=== PATIENT | female | born 2000 | race Caucasian/White ===

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

== ENCOUNTER → 2022-04-27 | Outpatient (CLI) | payer MEDICAID, SELFPAY ==
[2022-04-30 04:07] LABS: Chlamydia By Nucleic Acid AMP Negative (Negative)
[2022-04-30 20:02] LABS: Gonococcus By Nucleic Acid AMP Negative (Negative)
== END | disposition home or self-care (01) ==
PROVIDERS: PCP Nurse Practitioner Primary Care; Referring Provider Nurse Practitioner Women's Health; Visit Provider Nurse Practitioner Women's Health
DX: N89.8 Other specified noninflammatory disorders of vagina (principal)
CPT/HCPCS: 87070; 87205; 87491; 87591

== ENCOUNTER → 2023-04-13 | Outpatient (CLI) | payer MEDICAID, SELFPAY ==
--- OUTSIDE RECORDS SUMMARY | 2023-04-13 16:43 | XMS RPT_ITS | CCD ---
Author Name Unknown Address [facility] [place] [facility] [address] [place] [address] Organization [facility] Care Team Providers Care Vice President Of Instruction Name Role Phone Shan Nash MD Primary Care Provider SHAN NASH Primary Care Unavailab le SHAN NASH Primary Care Unavailab le Medications Current Medications Medication Drug Class(es) Dates Sig (Normalized) Sig (Original) polymyxin b 81140 unt/ml / trimethoprim 1 mg/ml ophthalmic solution (1 source) Dihydrofolate Reductase Inhibitor Antibacterial, Polymyxin-class Antibacterial Start: 02-24-2023 End: 03-03-2023 take 1 drop(s) into the eye(s) four times daily trimethoprim-polymy gerry (POLYTRIM) 10,000 unit- 1 mg/mL ophthalmic solution Indications: Bacterial conjunctivitis Use 1 Drop in the right eye four times daily for 7 days. 10 mL 0 02/24/2023 03/03/2023 Active Completed/Discontinued Medications Medication Drug Class(es) Dates Sig (Normalized) Sig (Original) acetaminophen 325 mg oral capsule (3 sources) acetaminophen (T YLENOL) 325 mg cap Take by mouth. 0 Active Problems Active Problems Problem Classification Problem Date Documented Date Episodic/Chronic Anxiety disorders (3 sources) Needle phobia; Translations: [Other specified phobia] Onset: 01-30-2016 01-30-2016 Chronic Attention-deficit, conduct, and disruptive behavior disorders (3 sources) Attention deficit hyperactivity disorder; Translations: [Attention-deficit hyperactivity disorder, unspecified type] Onset: 12-25-2009 12-25-2009 Chronic Immunizations and screening for infectious disease (1 source) Contact with or exposure to other viral diseases; Translations: [Close exposure to COVID-19 virus] Episodic Inflammation; infection of eye (except that caused by tuberculosis or sexually transmitteddisease) (1 source) Bacterial conjunctivitis; Translations: [Unspecified conjunctivitis] 02-24-2023 Episodic Influenza (1 source) Influenza-like illness; Translations: [Influenza due to unidentified influenza virus with other respiratory manifestations] Episodic Other upper respiratory infections (1 source) Sore throat symptom; Translations: [Acute pharyngitis, unspecified] 02-24-2023 Episodic Past or Other Problems Problem Classification Problem Date Documented Da te Episodic/Chronic Other gastrointestinal disorders (3 sources) Constipation; Translations: [Constipation, unspecified] Onset: 11-04-2015 11-04-2015 Episodic Other nutritional; endocrine; and metabolic disorders (3 sources) Overweight; Translations: [Overweight] Onset: 11-04-2015 11-04-2015 Episodic Other skin disorders (3 sources) Acne; Translations: [Acne, unspecified] Onset: 02-05-2016 02-05-2016 Episodic Results Test Name Value Interpretation Reference Range Facil ity Vital Signs Date Time Vital Sign Value Performing Clinician Faci ameenay 02-24-2023 12:11-0500 Body temperature 97.39 [degF] Rocael Swanson APRN.[facility] Work Phone: [facility] 02-24-2023 12:11-0500 Body weight 95.62 kg Rocael Swanson APRN.[facility] HEALTH CLINICAL [facility]IAISON Work Phone: [facility] 02-24-2023 12:11-0500 Diastolic blood pressure 74 mm[Hg] Rocael Swanson APRN.[facility]ALTH CLINICAL [facility]IAISON Work Phone: [facility] 02-24-2023 12:11-0500 Heart rate 116 /min Rocael Swanson APRN.[facility] CLINICAL [facility]IAISON Work Phone: [facility] 02-24-2023 12:11-0500 Respiratory rate 18 /min Rocael Swanson APRN.[facility] CLIN[facility]IAISON Work Phone: [facility] 02-24-2023 12:11-0500 SaO2% (BldA) [Mass fraction] 99 % Rocael Swanson APRN.[facility] CLINICAL [facility]IAISON Work Phone: [facility] 02-24-2023 12:11-0500 Systolic blood pressure 122 mm[Hg] Rocael Swanson APRN.[facility] CL[facility]ICAL [facility]IAISON Work Phone: [facility] 03-09-2022 17:11-0500 Body temperature 99.3 [degF] Meir Cisse MD Work Phone: [facility] 03-09-2022 17:11-0500 Body weight 93.89 kg Meir Cisse MD Work Phone: [facility] 03-09-2022 17:11-0500 Diastolic blood pressure 62 mm[Hg] Meir Cisse MD Work Phone: [facility] 03-09-2022 17:11-0500 Heart rate 130 /min Meir Cisse MD Work Phone: [facility] 03-09-2022 17:11-0500 Respiratory rate 18 /min Meir Cisse MD Work Phone: [facility] 03-09-2022 17:11-0500 SaO2% (BldA) [Mass fraction] 98 % Meir Cisse MD Work Phone: [facility] 03-09-2022 17:11-0500 Systolic blood pressure 100 mm[Hg] Meir Cisse MD Work Phone: [facility] 08-21-2021 15:55-0400 Body temperature 98.01 [degF] Brenna Segura APRN.[facility]IAISON Work Phone: [facility] 08-21-2021 15:55-0400 Body weight 88.36 kg Brenna Segura APRN.[facility] Work Phone: [facility] 08-21-2021 15:55-0400 Diastolic blood pressure 72 mm[Hg] Brenna Segura APRN.[facility] Work Phone: [facility] 08-21-2021 15:55-0400 Heart rate 110 /min Brenna Segura APRN.[facility] Work Phone: [facility] 08-21-2021 15:55-0400 Respiratory rate 20 /min Brenna Segura APRN.[facility] Work Phone: [facility] 08-21-2021 15:55-0400 SaO2% (BldA) [Mass fraction] 98 % Brenna Segura APRN.CNP Work Phone: [facility] 08-21-2021 15:55-0400 Systolic blood pressure 114 mm[Hg] Brenna Segura APRN.CNP Work Phone: [facility] Encounters Encounter Date Encounter Type Care Provider Facility Start: 02-24-2023 End: 02-24-2023 ambulatory SHAN NASH Facility:[facility] Start: 02-24-2023 End: 02-24-2023 Patient encounter procedure Rocael Swanson WENDI.[facility]ICAL [facility]IAISON Work Phone: [facility] Procedures Date Procedure Procedure Detail Performing Clinician Start: 02-24-2023 STREP A MOLECULAR (POC) [facility] Provider Plan of Treatment Date Care Activity Detail Author Start: 11-20-2022 Influenza vaccination Influenza Vaccine (#1) [facility] Start: 03-22-2022 Depression Assessment Depression Assessment [facility] Start: 03-09-2022 End: 03-23-2022 Influenza virus A and B RNA and SARS-CoV-2 (COVID-19) N gene panel - Respiratory specimen by CIERA with probe detection COVID WITH FLUA+B, ROUTINE Microbiology Routine Influenza-like illness Expected: 03/09/2022, Expires: 03/23/2022 [facility] Work Phone: Immunizations Immunization Date Immunization Notes Care Provider Meka coronado 04-09-2016 meningococcal polysaccharide (groups A, C, Y and W-135) diphtheria toxoid conjugate vaccine (MCV4P) Brenna Segura APRN.[facility] Work Phone: [facility] 11-05-2010 hepatitis A vaccine, unspecified formulation Brenna Segura APRN.[facility]IA[facility] Work Phone: [facility] 11-05-2010 varicella virus vaccine Martha Segura APRN.[facility] Work Phone: [facility] 05-12-2007 diphtheria, tetanus toxoids and acellular pertussis vaccine Brenna Segura APRN.CNP Work Phone: [facility] Work Phone: 05-12-2007 hepatitis A vaccine, unspecified formulation Brenna Segura APRN.[facility] Work Phone: [facility] Work Phone: 05-12-2007 measles, mumps and rubella virus vaccine Brenna Segura APRN.[facility] Work Phone: [facility] Work Phone: 05-12-2007 poliovirus vaccine, inactivated Brenna Segura APRN.[facility] Work Phone: [facility] Work Phone: 02-14-2007 influenza virus vacc ine, unspecified formulation Brenna Segura APRN.[facility] Work Phone: [facility] Work Phone: 12-25-2004 diphtheria, tetanus toxoids and acellular pertussis vaccine Brenna Segura APRN.[facility] Work Phone: [facility] Work Phone: 12-25-2004 haemophilus influenz ae type b vaccine, HbOC conjugate Brenna Segura APRN.[facility] Work Phone: [facility] Work Phone: 12-25-2004 pneumococcal conjuga te vaccine, 7 valent Brenna Segura APRN.[facility] Work Phone: [facility] Work Phone: 11-21-2003 hepatitis B vaccine, pediatric or pediatric/adolescent dosage Brenna Segura APRN.[facility] Work Phone: [facility] Work Phone: 11-21-2003 measles, mumps and rubella virus vaccine Brenna Segura APRN.[facility] Work Phone: [facility] Work Phone: 11-21-2003 poliovirus vaccine, inactivated Brenna Segura APRN.[facility] Work Phone: [facility] Work Phone: 11-21-2003 varicella virus vaccine Martha Segura APRN.[facility] Work Phone: [facility] Work Phone: 04-30-2003 diphtheria, tetanus toxoids and acellular pertussis vaccine Brenna Segura APRN.[facility] Work Phone: [facility] Work Phone: 04-30-2003 haemophilus influenz ae type b vaccine, HbOC conjugate Brenna Segura APRN.[facility] Work Phone: [facility] Work Phone: 04-30-2003 hepatitis B vaccine, pediatric or pediatric/adolescent dosage Brenna Segura APRN.[facility] Work Phone: [facility] Work Phone: 04-30-2003 pneumococcal conjuga te vaccine, 7 valent Brenan Segura APRN.[facility] Work Phone: [facility] Work Phone: 03-02-2003 diphtheria, tetanus toxoids and acellular pertussis vaccine Brenna Segura APRN.[facility] Work Phone: [facility] Work Phone: 03-02-2003 haemophilus influenz ae type b vaccine, HbOC conjugate Brenna Segura APRN.[facility] Work Phone: [facility] Work Phone: 03-02-2003 pneumococcal conjuga te vaccine, 7 valent Brenna Segura APRN.[facility] Work Phone: [facility] Work Phone: 03-02-2003 poliovirus vaccine, inactivated Brenna Segura APRN.[facility] Work Phone: [facility] Work Phone: 2002 diphtheria, tetanus toxoids and acellular pertussis vaccine Brenna Segura APRN.[facility] Work Phone: [facility] Work Phone: 2002 haemophilus influenz ae type b vaccine, HbOC conjugate Brenna Segura APRN.[facility] Work Phone: [facility] Work Phone: 2002 pneumococcal conjuga te vaccine, 7 valent Brenna Segura APRN.[facility] Work Phone: [facility] Work Phone: 2002 poliovirus vaccine, inactivated Brenna Segura APRN.[facility] Work Phone: [facility] Work Phone: 2002 hepatitis B vaccine, pediatric or pediatric/adolescent dosage Brenna Segura APRN.[facility] Work Phone: [facility] Work Phone: Payers Date Payer Category Payer Medicaid [id number] 2018 Medicaid [employer] [facility] [id number] 2018-Present [phone] [address] [place] [address] Medicaid [id number] 2018 Medicaid [id number] 2018 Medicaid [id number] Social History Date Type Detail Facility Start: [facility]09[facility] Start: 08-21-2021 End: 02-24-2023 Alcohol intake Current non-drinker of alcohol (finding) [facility] Start: 12-10-2012 End: 03-09-2022 Tobacco Comment Outside of the home only, none with grandfather [facility] Start: 2002 Sex Assigned At Not on file [facility] History of tobacco use Passive smoker [facility] Start: 03-09-2022 Tobacco use and exposure Smokeless t obacco non-user [facility] Start: 02-25-2020 End: 02-24-2023 History of Social function [facility] Start: 02-25-2020 End: 02-24-2023 Tobacco use panel [facility] National Score (1-10 0), lower number is lower risk Not on file [facility] Progress note 02-24-2023 Note Date & Type Note Facility 02-24-2023 Note HNO ID: [id number] Author: Rocael Swanson APRN.[facility] Service: ? Author Type: Nurse Practitioner Type: Progress Notes Filed: 02/24/2023 1:06 PM Note Text: Subjective HPI HPI Grazyna Langston is a 22 year old female who presents today for CC of right eye redness, drainage, congestion, cough, right ear pain. This started 2 days ago. Has tried otc medication for relief. Symptoms are worsened by nothing. Risk factors sick exposures at work. Denies possibility of being . Nonsmoker. .Patient presents with: Conjunctivitis: Congestion, Right ear pain, and cough x2days PAST MEDICAL HISTORY Diagnosis Date Acne 02/05/2016 ADHD (attention deficit hyperactivity disorder) 11-20-2009 Constipation 11/04/2015 Menstrual periods irregular 2014 NEGATIVE MEDICAL HISTORY 05/12/2007 Normal color vision Overweight 11/04/2015 PAST SURGICAL HISTORY Procedure Laterality Date NONE ALLERGIES Patient has no known allergies. MEDICATIONS levonorgestrel-ethinyl estradiol 0.15-0.03 mg per tab Take by mouth. acetaminophen (TYLENOL) 325 mg cap Take by mouth. FAMILY HISTORY Problem Relation Age of Onset other (Anxiety) Mother None Father Diabetes Maternal Grandfather other (Anxiety) Maternal Grandfather Diabetes Paternal Grandfather Social History Tobacco Use Smoking status: Never Passive exposure: Yes Smokeless tobacco: Never Tobacco comments: Outside of the home only, none with grandfather Substance Use Topics Alcohol use: No Drug use: No Review of Systems Constitutional: Positive for malaise/fatigue. Negative for chills and fever. HENT: Positive for congestion. Negative for ear discharge, ear pain, nosebleeds and sore throat. Eyes: Positive for discharge and redness. Negative for blurred vision, double vision, photophobia and pain. Respiratory: Positive for cough. Negative for shortness of breath and wheezing. Musculoskeletal: Negative for neck pain. Neurological: Negative for headaches. Objective Blood pressure 122/74, pulse 116, temperature 36.3 ?C (97.4 ?F), resp. rate 18, weight 95.6 kg (210 lb 12.8 oz), last menstrual period 12/29/2020, SpO2 99%. Physical Exam Constitutional: General: She is not in acute distress. Appearance: She is not toxic-appearing or diaphoretic. HENT: Head: Normocephalic and atraumatic. Right Ear: Hearing, tympanic membrane, ear canal and external ear normal. Left Ear: Hearing, tympanic membrane, ear canal and external ear normal. Nose: Nose normal. No mucosal edema. Mouth/Throat: Pharynx: Uvula midline. No pharyngeal swelling, oropharyngeal exudate, posterior oropharyngeal erythema or uvula swelling. Eyes: General: Lids are normal. No scleral icterus. Right eye: Discharge present. Left eye: No discharge. Conjunctiva/sclera: Right eye: Right conjunctiva is injected. Left eye: Left conjunctiva is injected. Pupils: Pupils are equal, round, and reactive to light. Neck: Trachea: Trachea normal. Cardiovascular: Rate and Rhythm: Normal rate and regular rhythm. Heart sounds: Normal heart sounds. Pulmonary: Effort: Pulmonary effort is normal. Breath sounds: Normal breath sounds. Musculoskeletal: Cervical back: Normal range of motion and neck supple. Lymphadenopathy: Cervical: Cervical adenopathy present. Right cervical: Superficial cervical adenopathy present. Left cervical: Superficial cervical adenopathy present. Comments: No cervical lymphadenopathy bilaterally Skin: Findings: No rash. Neurological: Mental Status: She is alert and oriented to person, place, and time. ASSESSMENT/PLAN: 1. Sore throat - ICD9: 462, ICD10: J02.9 (primary diagnosis) - suspect viral - Group A strep molecular testing negative - Discussed supportive care treatment with fluids, rest and analgesia. - The patient should follow up in 3-5 days if symptoms persist or worsen - ALERE STREP A TEST (AG) 2. Bacterial conjunctivitis - ICD9: 372.39, 041.9, ICD10: H10.9 Bacterial - see medication orders - course and contagiousness issues discussed, including hand washing. - Instructed to call if high fever, development of periorbital redness or swelling, eye pain, visual changes, concerns or if symptoms persist. - POLYMYXIN B SULFATE 10,000 UNIT-TRIMETHOPRIM 1 MG/ML EYE DROPS Rocael Swanson APRN.[facility] History of Present illness Narrative 02-24-2023 Rocael Swanson APRN.LINDY - 02/24/2023 12:17 PM EST Note Date & Type Note Facility 02-24-2023 History of Presen t illness Narrative Subjective HPI HPI Grazyna Langston is a 22 year old female who presents today for CC of right eye redness, drainage, congestion, cough, right ear pain. This started 2 days ago. Has tried otc medication for relief. Symptoms are worsened by nothing. Risk factors sick exposures at work. Denies possibility of being . Nonsmoker. .Patient presents with: Conjunctivitis: Congestion, Right ear pain, and cough x2days PAST MEDICAL HISTORY Diagnosis Date Acne 02/05/2016 ADHD (attention deficit hyperactivity disorder) 11-20-2009 Constipation 11/04/2015 Menstrual periods irregular 2014 NEGATIVE MEDICAL HISTORY 05/12/2007 Normal color vision Overweight 11/04/2015 PAST SURGICAL HISTORY Procedure Laterality Date NONE ALLERGIES Patient has no known allergies. MEDICATIONS levonorgestrel-ethinyl estradiol 0.15-0.03 mg per tab Take by mouth. acetaminophen (TYLENOL) 325 mg cap Take by mouth. FAMILY HISTORY Problem Relation Age of Onset other (Anxiety) Mother None Father Diabetes Maternal Grandfather other (Anxiety) Maternal Grandfather Diabetes Paternal Grandfather Social History Tobacco Use Smoking status: Never Passive exposure: Yes Smokeless tobacco: Never Tobacco comments: Outside of the home only, none with grandfather Substance Use Topics Alcohol use: No Drug use: No Review of Systems Constitutional: Positive for malaise/fatigue. Negative for chills and fever. HENT: Positive for congestion. Negative for ear discharge, ear pain, nosebleeds and sore throat. Eyes: Positive for discharge and redness. Negative for blurred vision, double vision, photophobia and pain. Respiratory: Positive for cough. Negative for shortness of breath and wheezing. Musculoskeletal: Negative for neck pain. Neurological: Negative for headaches. Objective Blood pressure 122/74, pulse 116, temperature 36.3 C (97.4 F), resp. rate 18, weight 95.6 kg (210 lb 12.8 oz), last menstrual period 12/29/2020, SpO2 99%. Physical Exam Constitutional: General: She is not in acute distress. Appearance: She is not toxic-appearing or diaphoretic. HENT: Head: Normocephalic and atraumatic. Right Ear: Hearing, tympanic membrane, ear canal and external ear normal. Left Ear: Hearing, tympanic membrane, ear canal and external ear normal. Nose: Nose normal. No mucosal edema. Mouth/Throat: Pharynx: Uvula midline. No pharyngeal swelling, oropharyngeal exudate, posterior oropharyngeal erythema or uvula swelling. Eyes: General: Lids are normal. No scleral icterus. Right eye: Discharge present. Left eye: No discharge. Conjunctiva/sclera: Right eye: Right conjunctiva is injected. Left eye: Left conjunctiva is injected. Pupils: Pupils are equal, round, and reactive to light. Neck: Trachea: Trachea normal. Cardiovascular: Rate and Rhythm: Normal rate and regular rhythm. Heart sounds: Normal heart sounds. Pulmonary: Effort: Pulmonary effort is normal. Breath sounds: Normal breath sounds. Musculoskeletal: Cervical back: Normal range of motion and neck supple. Lymphadenopathy: Cervical: Cervical adenopathy present. Right cervical: Superficial cervical adenopathy present. Left cervical: Superficial cervical adenopathy present. Comments: No cervical lymphadenopathy bilaterally Skin: Findings: No rash. Neurological: Mental Status: She is alert and oriented to person, place, and time. ASSESSMENT/PLAN: 1. Sore throat - ICD9: 462, ICD10: J02.9 (primary diagnosis) - suspect viral - Group A strep molecular testing negative - Discussed supportive care treatment with fluids, rest and analgesia. - The patient should follow up in 3-5 days if symptoms persist or worsen - ALERE STREP A TEST (AG) 2. Bacterial conjunctivitis - ICD9: 372.39, 041.9, ICD10: H10.9 Bacterial - see medication orders - course and contagiousness issues discussed, including hand washing. - Instructed to call if high fever, development of periorbital redness or swelling, eye pain, visual changes, concerns or if symptoms persist. - POLYMYXIN B SULFATE 10,000 UNIT-TRIMETHOPRIM 1 MG/ML EYE DROPS Rocael Swanson APRN.[facility]IA[facility] documented in this encounter [facility] Influenza virus A and B RNA and SARS-CoV-2 (COVID-19) N gene panel CIERA+probe (Resp) 03-09-2022 Note Date & Type Note Facility 03-09-2022 Influenza virus A and B RNA and SARS-CoV-2 (COVID-19) N gene panel CIERA+probe (Resp) COVID 19 RESULT: SARS-CoV-2 (Agent of COVID-19) Not Detected by RT-PCR or equivalent method. dali [id number]_[employer] (POLY)_EUA This test was developed and its performance characteristics determined by [facility]'s [facility] [place]. This test has been authorized by FDA under an Emergency Use Authorization (EUA). This test has been validated in accordance with the FDA's Guidance Document Policy for Diagnostics Testing in Laboratories Certified to Perform High Complexity Testing under CLIA prior to Emergency use Authorization for Coronavirus Disease 2019 during the Public Health Emergency issued on May 20, 2019. Test performed by [facility], [facility] [place], [address] [place] [address]. INFLUENZA A PCR: Positive for Influenza A by RT-PCR INFLUENZA B PCR: Negative for Influenza B by RT-PCR [facility] Progress note 03-09-2022 Note Date & Type Note Facility 03-09-2022 Note HNO ID: [id number] Author: Meir Cisse MD Service: ? Author Type: Physician Type: Progress Notes Filed: 03/09/2022 6:02 PM Note Text: Patient presents with: Flu Like Symptoms: Exposure to Flu, vomiting, cough, sweats/ chills, ST, congestion x1 day HPI: Feeling sick since last night. Positive symptoms: Cough, Nasal Congestion, Rhinorrhea, Feverish, Chills, sweats, Malaise, Headache, Nausea, Vomiting, Diarrhea, sometimes Shortness of breath with nasal congestion Negative symptoms: OTC: pain reliever Had COVID illness 2 months ago. MEDICATIONS: Current Outpatient Medications Medication Sig levonorgestrel-ethinyl estradiol 0.15-0.03 mg per tab Take by mouth. acetaminophen (TYLENOL) 325 mg cap Take by mouth. No current facility-administered medications for this visit. ALLERGIES: ALLERGIES No Known Allergies VITALS: BP 100/62 Pulse (!) 130 Temp 37.4 ?C (99.3 ?F) Resp 18 Wt 93.9 kg (207 lb) LMP 12/29/2020 SpO2 98% PHYSICAL EXAM: GEN: mildly ill appearing HEENT: PERRL, EOMI, conjunctiva clear Ears: canals clear. TMs without erythema, bulge, or effusion Sinuses: non-tender frontal sinus, non-tender maxillary sinuses Throat: moist mucous membranes, mild erythema, no exudate Neck: supple, no thyromegaly, no lymphadenopathy HEART: regular rate and rhythm, no murmurs LUNGS: clear to auscultation, no wheezes or crackles, no increased WOB ABD: Soft, non-distended, non-tender, no masses ASSESSMENT/PLAN: 1. Influenza-like illness - ICD9: 487.1, ICD10: J11.1 - suspect influenza. - Discussed supportive care treatment with home isolation, rest, hydration, cold medicine, and analgesia. - Red flags to seek further treatment include chest pain, shortness of breath, and lethargy; in the ER if severe. - COVID WITH FLUA+B, ROUTINE. Can return to work once fever free 48 hours if influenza+. Meir Cisse MD [facility] History of Present illness Narrative 03-09-2022 Meir Cisse MD - 03/09/2022 5:51 PM EST Note Date & Type Note Facility 03-09-2022 History of Presen t illness Narrative Patient presents with: Flu Like Symptoms: Exposure to Flu, vomiting, cough, sweats/ chills, ST, congestion x1 day HPI: Feeling sick since last night. Positive symptoms: Cough, Nasal Congestion, Rhinorrhea, Feverish, Chills, sweats, Malaise, Headache, Nausea, Vomiting, Diarrhea, sometimes Shortness of breath with nasal congestion Negative symptoms: OTC: pain reliever Had COVID illness 2 months ago. MEDICATIONS: Current Outpatient Medications Medication Sig levonorgestrel-ethinyl estradiol 0.15-0.03 mg per tab Take by mouth. acetaminophen (TYLENOL) 325 mg cap Take by mouth. No current facility-administered medications for this visit. ALLERGIES: ALLERGIES No Known Allergies VITALS: BP 100/62 Pulse (!) 130 Temp 37.4 C (99.3 F) Resp 18 Wt 93.9 kg (207 lb) LMP 12/29/2020 SpO2 98% PHYSICAL EXAM: GEN: mildly ill appearing HEENT: PERRL, EOMI, conjunctiva clear Ears: canals clear. TMs without erythema, bulge, or effusion Sinuses: non-tender frontal sinus, non-tender maxillary sinuses Throat: moist mucous membranes, mild erythema, no exudate Neck: supple, no thyromegaly, no lymphadenopathy HEART: regular rate and rhythm, no murmurs LUNGS: clear to auscultation, no wheezes or crackles, no increased WOB ABD: Soft, non-distended, non-tender, no masses ASSESSMENT/PLAN: 1. Influenza-like illness - ICD9: 487.1, ICD10: J11.1 - suspect influenza. - Discussed supportive care treatment with home isolation, rest, hydration, cold medicine, and analgesia. - Red flags to seek further treatment include chest pain, shortness of breath, and lethargy; in the ER if severe. - COVID WITH FLUA+B, ROUTINE. Can return to work once fever free 48 hours if influenza+. Meir Cisse MD documented in this encounter [facility] History of Present illness Narrative 08-21-2021 Brenna Segura APRN.[facility] - 08/21/2021 4:04 PM EDT Note Date & Type Note Facility 08-21-2021 History of Presen t illness Narrative CC: Patient presents with: Diarrhea: vomiting x1 day with dizziness HPI: Grazyna Langston is a 20 year old female who presents to the office with complaint of headache for the past day. Symptoms are improving Associated symptoms includes vomiting and diarrhea. Denies fever. Treatments tried include nothing so far. with no relief of symptoms. Sick contacts: yes. History of asthma, frequent episodes of bronchitis, chronic bronchitis, bronchiectasis or COPD: No Smoker: No Seasonal/environmental allergies: No The ROS is otherwise negative. The patient's pmh, medications, allergies, and past visits are reviewed. PHYSICAL EXAM: BP 114/72 Pulse 110 Temp 36.7 C (98 F) Resp 20 Wt 88.4 kg (194 lb 12.8 oz) LMP 12/29/2020 SpO2 98% General appearance: alert, cooperative, pleasant, in no acute distress Head: Normocephalic Eyes: EOM's intact, conjunctiva pink and moist, no icterus, sclera white, non-injected Ears: Right ear: External ear/canal- Normal, TM - clear with good landmarks. Left ear: External ear/canal- Normal, TM - clear with good landmarks Heart: Negative. RRR without obvious murmur, gallop, or rubs. No ectopy. Lungs: clear to auscultation, without rales or wheeze, good air exchange PAST MEDICAL HISTORY Diagnosis Date Acne 02/05/2016 ADHD (attention deficit hyperactivity disorder) 9- Constipation 11/04/2015 Menstrual periods irregular 2014 NEGATIVE MEDICAL HISTORY 05/12/2007 Normal color vision Overweight 11/04/2015 PAST SURGICAL HISTORY Procedure Laterality Date NONE ALLERGIES Patient has no known allergies. MEDICATIONS levonorgestrel-ethinyl estradiol 0.15-0.03 mg per tab Take by mouth. acetaminophen (TYLENOL) 325 mg cap Take by mouth. benzonatate (TESSALON PERLES) 100 mg capsule Take 1 capsule by mouth three times daily as needed for cough. FAMILY HISTORY Problem Relation Age of Onset other (Anxiety) Mother None Father Diabetes Maternal Grandfather other (Anxiety) Maternal Grandfather Diabetes Paternal Grandfather Social History Tobacco Use Smoking status: Passive Smoke Exposure - Never Smoker Smokeless tobacco: Never Used Tobacco comment: Outside of the home only, none with grandfather Substance Use Topics Alcohol use: No Drug use: No ASSESSMENT/PLAN: 1. Close exposure to COVID-19 virus - ICD9: V01.79, ICD10: Z20.822 - COVID WITH FLUA+B, ROUTINE Prescription instructions reviewed with patient as applicable. Potential red flag symptoms discussed with the patient. Reviewed appropriate action plan to take if red flag symptoms occur. Patient agreeable to treatment plan. Brenna Segura APRN.[facility] documented in this encounter [facility] Evaluation note Note Date & Type Note Facility documented in this encounter [facility] Evaluation note Note Date & Type Note Facility documented in this encounter [facility] Evaluation note Note Date & Type Note [facility] Concerns Infection Onset Date Last Indicated Resolved Time COVID-19 Rule-Out 08/21/2021 08/21/2021 Infection Onset Date Last Indicated Resolved Time COVID-19 Rule-Out 03/09/2022 03/09/2022 Summary Purpose Family History No Family History Records Found Advance Directives No Advanced Directives Records Found Additional Source Comments Source Comments (unrecognize d section and content) In the event this informatio n is protected by the Federal Confidentiality of Alcohol and Drug Abuse Patient Records regulations: The Federal rules restrict any use of the information to criminally investigate or prosecute any alcohol or drug abuse patient.[facility] the event this information is protected by the Federal Confidentiality of Alcohol and Drug Abuse Patient Records regulations: The Federal rules restrict any use of the information to criminally investigate or prosecute any alcohol or drug abuse patient.[facility] the event this information is protected by the Federal Confidentiality of Alcohol and Drug Abuse Patient Records regulations: The Federal rules restrict any use of the information to criminally investigate or prosecute any alcohol or drug abuse patient.[facility] Reason for Visit (unrecogniz ed section and content) Reason Comments Flu Like Symptoms Exposure to Flu, vom iting, cough, sweats/ chills, ST, congestion x1 day Reason Comments Conjunctivitis Congestion, Right ea r pain, and cough x2days Care Teams (unrecognized sec tion and content) Vice President Of Instruction Relationship Specialty Start Date End Date Shan Nash MD [address] [place], [place] [id number] PCP - General Family Medicine 01/02/20 Vice President Of Instruction Relationship Specialty Start Date End Date Shan Nash MD [address] [place] [address] PCP - General Family Medicine 01/02/20 INFORMATION SOURCE (unrecogn ized section and content) FOR RECORDS PERTAINING TO PATIENTS WHO ARE OR HAVE BEEN ENROLLED IN A CHEMICAL DEPENDENCY/SUBSTANCEABUSE PROGRAM, SOME INFORMATION MAY BE OMITTED. This clinical summary was aggregated from multiple sources. Caution should be exercised in using it in the provision of clinical care. This summary normalizes information from multiple sources, and as a consequence, information in this document may materially change the coding, format and clinical context of patient data. In addition, data may be omitted in some cases. CLINICAL DECISIONS SHOULD BE BASED ON THE PRIMARY CLINICAL RECORDS. [facility]. provides no warranty or guarantee of the accuracy or completeness of information in this document.
[2023-04-16 05:07] LABS: Chlamydia By Nucleic Acid AMP Negative (Negative); Gonococcus By Nucleic Acid AMP Negative (Negative)
== END | disposition home or self-care (01) ==
LOC: LABSPEC 16:35
PROVIDERS: PCP Nurse Practitioner Primary Care; Referring Provider Nurse Practitioner Women's Health; Visit Provider Nurse Practitioner Women's Health
DX: R10.2 Pelvic and perineal pain (principal); N89.8 Other specified noninflammatory disorders of vagina
CPT/HCPCS: 87070; 87205; 87491; 87591

== ENCOUNTER → 2023-04-28 | Outpatient (CLI) | payer MEDICAID, SELFPAY ==
--- NOTE | 2023-04-28 14:22 | US_ITS ---
STUDY: ULTRASOUND OF THE FEMALE PELVIS - COMPLETE REASON FOR EXAM: Female, 22 years old. Pain- off and on bilat LMP: April 17, 2023. TECHNIQUE: Transabdominal and Transvaginal TECHNICAL QUALITY: Adequate. COMPARISON: None. FINDINGS: The uterus is anteverted and is in a midline position. The uterus measures 6.8 cm x 3.5 cm x 2.6 cm. Normal uterine cervix. The endometrium measures 4 mm in thickness, and is hyperechoic. There is no demonstrated endometrial mass. There is no demonstrated myometrial mass. I.U.D. - The patient does not have an I.U.D. The right ovary is visualized. The right ovary measures 2.2 cm x 1.5 cm x 1.1 cm. There is no right ovarian cyst or ovarian mass. There is no visualized right adnexal mass or complex lesion. There is normal arterial and normal venous vascularity. The left ovary is visualized. The left ovary measures 1.6 cm x 1.4 cm x 0.9 cm. There is no left ovarian cyst or ovarian mass. There is no visualized left adnexal mass or complex lesion. There is normal arterial and normal venous vascularity. There is minimal fluid in the cul-de-sac. The pre void volume of the bladder was 254 ml. US/Pelvic w/ Transvaginal IMPRESSION: Normal female pelvis. Electronically Signed: Quinten Ang MD at 15:26 EST ,
== END | disposition home or self-care (01) ==
LOC: US 14:21
PROVIDERS: PCP Nurse Practitioner Primary Care; Referring Provider Nurse Practitioner Women's Health; Visit Provider Nurse Practitioner Women's Health
DX: R10.2 Pelvic and perineal pain (principal)
CPT/HCPCS: 76830; 76856

== ENCOUNTER → 2023-12-02 | Outpatient (CLI) | payer MEDICAID, SELFPAY ==
[2023-12-08 10:43] LABS: HPV Reflexed? NOT INDICATED
== END | disposition home or self-care (01) ==
LOC: LABSPEC 14:31
PROVIDERS: PCP Nurse Practitioner Primary Care; Referring Provider Nurse Practitioner Women's Health; Visit Provider Nurse Practitioner Women's Health
DX: Z12.4 Encounter for screening for malignant neoplasm of cervix (principal)
CPT/HCPCS: 88175; G0145

== ENCOUNTER → 2024-12-18 | Outpatient (CLI) | payer BC, SELFPAY ==
--- OUTSIDE RECORDS SUMMARY | 2024-05-04 15:45 | XMS RPT_ITS ---
Author Name Auto Generated Organization [facility] Care Team Providers Care Plasticator Name Role Phone JONATAN NASH Primary Care Unavailab le PROBLEMS No Problem Records Found PROCEDURES No Procedure Records Found RESULTS PROGRESS Observed: 05/04/2024 2:59 PM Status: COMPLETED Source: [facility] HNO ID: [id number] Author: CORRIE DUFF PA Service: ? Author Type: Physician Nurse Supervisor Type: Progress Notes Filed: 05/04/2024 15:10 Note Text: This note was created using Kiipriter. Subjective Tom Langston is a 23 year old female. HPI 23-year-old female presents for sore throat. Patient has had a sore throat for the past 2 days. She had low-grade fever of 99 to 100 ?F. No vomiting. She has had a headache. She has a mild cough. No congestion. Still able to eat and drink. She has had sick contacts at her work. No other complaint. PAST MEDICAL HISTORY Diagnosis Date Acne 02/05/2016 ADHD (attention deficit hyperactivity disorder) 9--2009 Constipation 11/04/2015 Menstrual periods irregular 2014 NEGATIVE MEDICAL HISTORY 05/12/2007 Normal color vision Overweight 11/04/2015 PAST SURGICAL HISTORY Procedure Laterality Date NONE ALLERGIES Patient has no known allergies. MEDICATIONS levonorgestrel-ethinyl estradiol 0.15-0.03 mg per tab Take by mouth. (Patient not taking: Reported on 05/04/2024) MONO-LINYAH 0.25-35 mg-mcg per tablet TAKE 1 TABLET ON PACKAGE ONCE DAILY ondansetron orally disintegrating (ZOFRAN ODT) 4 mg disintegrating tablet Take 1 tablet by mouth every 6 hours as needed for nausea/vomiting. (Patient not taking: Reported on 05/04/2024) acetaminophen (TYLENOL) 325 mg cap Take by mouth. (Patient not taking: Reported on 05/04/2024) FAMILY HISTORY Problem Relation Age of Onset other (Anxiety) Mother None Father Diabetes Maternal Grandfather other (Anxiety) Maternal Grandfather Diabetes Paternal Grandfather Social History Tobacco Use Smoking status: Never Passive exposure: Yes Smokeless tobacco: Never Tobacco comments: Outside of the home only, none with grandfather Substance Use Topics Alcohol use: No Drug use: No Review of Systems Constitutional: Positive for fever. Negative for chills. HENT: Positive for sore throat. Negative for congestion and ear pain. Respiratory: Negative for cough and shortness of breath. Cardiovascular: Negative for chest pain. Gastrointestinal: Negative for diarrhea and vomiting. Neurological: Positive for headaches. Objective BP 125/86 Pulse 95 Temp 37.1 ?C (98.8 ?F) Resp 18 Wt 100.8 kg (222 lb 3.6 oz) LMP 12/29/2020 SpO2 100% Physical Exam Vitals and nursing note reviewed. Constitutional: General: She is not in acute distress. Appearance: Normal appearance. She is not toxic-appearing. HENT: Right Ear: Tympanic membrane and ear canal normal. Left Ear: Tympanic membrane and ear canal normal. Nose: Nose normal. Mouth/Throat: Mouth: Mucous membranes are moist. Pharynx: Uvula midline. Posterior oropharyngeal erythema present. Tonsils: No tonsillar exudate or tonsillar abscesses. 2+ on the right. 2+ on the left. Eyes: Conjunctiva/sclera: Conjunctivae normal. Cardiovascular: Rate and Rhythm: Normal rate and regular rhythm. Pulmonary: Effort: Pulmonary effort is normal. Breath sounds: Normal breath sounds. Lymphadenopathy: Cervical: Cervical adenopathy present. Skin: General: Skin is warm and dry. Neurological: Mental Status: She is alert. Assessment and Plan ASSESSMENT/PLAN: 1. Sore throat - ICD9: 462, ICD10: J02.9 - suspect viral - Group A strep molecular testing negative - Discussed supportive care treatment with fluids, rest and analgesia. - The patient may also use warm salt water gargles, throat lozenges and/or OTC throat spray as needed. - STREP A MOLECULAR (POC) Diagnosis and treatment plan were discussed and questions were answered to the patient's satisfaction. Pt acknowledged understanding of concepts and follow up plan. Specific signs and symptoms that would indicate the need for higher level of care were discussed in detail warranting prompt ER evaluation. ORLANDO Canchola CNOV Observed: 05/04/2024 2:45 PM Status: COMPLETED Source: [facility] Office Visit (WSTR) TOM LANGSTON ([id number]) 4 F Date Time Provider Department 05/04/24 2:45 PM CORRIE DUFF [facility] During your visit today, we recorded the following information about you: Temperature Pulse Respiration Blood pressure 98.8 degrees 95/minute 18/minute 125/86 Weight 100.8 kg Corrie Duff PA 05/04/2024 3:10 PM Signed This note was created using Kiipriter. Subjective Tom Langston is a 23 year old female. HPI 23-year-old female presents for sore throat. Patient has had a sore throat for the past 2 days. She had low-grade fever of 99 to 100 ?F. No vomiting. She has had a headache. She has a mild cough. No congestion. Still able to eat and drink. She has had sick contacts at her work. No other complaint. PAST MEDICAL HISTORY Diagnosis Date Acne 02/05/2016 ADHD (attention deficit hyperactivity disorder) 11-20-2009 Constipation 11/04/2015 Menstrual periods irregular 2014 NEGATIVE MEDICAL HISTORY 05/12/2007 Normal color vision Overweight 11/04/2015 PAST SURGICAL HISTORY Procedure Laterality Date NONE ALLERGIES Patient has no known allergies. MEDICATIONS levonorgestrel-ethinyl estradiol 0.15-0.03 mg per tab Take by mouth. (Patient not taking: Reported on 05/04/2024) MONO-LINYAH 0.25-35 mg-mcg per tablet TAKE 1 TABLET ON PACKAGE ONCE DAILY ondansetron orally disintegrating (ZOFRAN ODT) 4 mg disintegrating tablet Take 1 tablet by mouth every 6 hours as needed for nausea/vomiting. (Patient not taking: Reported on 05/04/2024) acetaminophen (TYLENOL) 325 mg cap Take by mouth. (Patient not taking: Reported on 05/04/2024) FAMILY HISTORY Problem Relation Age of Onset other (Anxiety) Mother None Father Diabetes Maternal Grandfather other (Anxiety) Maternal Grandfather Diabetes Paternal Grandfather Social History Tobacco Use Smoking status: Never Passive exposure: Yes Smokeless tobacco: Never Tobacco comments: Outside of the home only, none with grandfather Substance Use Topics Alcohol use: No Drug use: No Review of Systems Constitutional: Positive for fever. Negative for chills. HENT: Positive for sore throat. Negative for congestion and ear pain. Respiratory: Negative for cough and shortness of breath. Cardiovascular: Negative for chest pain. Gastrointestinal: Negative for diarrhea and vomiting. Neurological: Positive for headaches. Objective BP 125/86 Pulse 95 Temp 37.1 ?C (98.8 ?F) Resp 18 Wt 100.8 kg (222 lb 3.6 oz) LMP 12/29/2020 SpO2 100% Physical Exam Vitals and nursing note reviewed. Constitutional: General: She is not in acute distress. Appearance: Normal appearance. She is not toxic-appearing. HENT: Right Ear: Tympanic membrane and ear canal normal. Left Ear: Tympanic membrane and ear canal normal. Nose: Nose normal. Mouth/Throat: Mouth: Mucous membranes are moist. Pharynx: Uvula midline. Posterior oropharyngeal erythema present. Tonsils: No tonsillar exudate or tonsillar abscesses. 2+ on the right. 2+ on the left. Eyes: Conjunctiva/sclera: Conjunctivae normal. Cardiovascular: Rate and Rhythm: Normal rate and regular rhythm. Pulmonary: Effort: Pulmonary effort is normal. Breath sounds: Normal breath sounds. Lymphadenopathy: Cervical: Cervical adenopathy present. Skin: General: Skin is warm and dry. Neurological: Mental Status: She is alert. Assessment and Plan ASSESSMENT/PLAN: 1. Sore throat - ICD9: 462, ICD10: J02.9 - suspect viral - Group A strep molecular testing negative - Discussed supportive care treatment with fluids, rest and analgesia. - The patient may also use warm salt water gargles, throat lozenges and/or OTC throat spray as needed. - STREP A MOLECULAR (POC) Diagnosis and treatment plan were discussed and questions were answered to the patient's satisfaction. Pt acknowledged understanding of concepts and follow up plan. Specific signs and symptoms that would indicate the need for higher level of care were discussed in detail warranting prompt ER evaluation. ORLANDO Canchola Allergies As of Date: 05/04/2024 (No Known Allergies) Date Reviewed: 05/04/2024 Reviewed by: Erendira Peoples MA - Fully Assessed Reason for Visit: Sore Throat [200] Cmt: RIBEIRO, fever x1 day Primary Visit Diagnosis:Sore throat [J02.9] Order(s):STREP A MOLECULAR (POC) [[id number]] Order #: [id number]. #:[id number] Prescriptions as of 05/04/2024 - MONO-LINYAH 0.25-35 mg-mcg per tablet TAKE 1 TABLET ON PACKAGE ONCE DAILY - ondansetron orally disintegrating (ZOFRAN ODT) 4 mg disintegrating tablet Take 1 tablet by mouth every 6 hours as needed for nausea/vomiting. - levonorgestrel-ethinyl estradiol 0.15-0.03 mg per tab Take by mouth. - acetaminophen (TYLENOL) 325 mg cap Take by mouth. Problem List As Of Date 05/04/2024 Noted Resolved ADHD (attention deficit hyperactivity disorder)*12/25/2009 Constipation [K59.00] 11/04/2015 Overweight [E66.3] 11/04/2015 Needle phobia [F40.298] 01/30/2016 Acne [L70.9] 02/05/2016 Encounter Status:Closed by CORRIE DUFF on 05/04/24 ALLERGIES DATE TYPE / CODE NAME / CODE REACTION SEVERITY SOURCE Drug Class/[id number](SNO MED CT) NO KNOWN ALLERGIES [facility] ENCOUNTERS ADMIT/DISCHARGE ACCOUNT NUMBER ADMITTING ENCOUNTER CLASS LOC ATION SOURCE 05/04/2024/ [id number] [facility] ENCOUNTER GUARANTOR PAYER SUBSCRIBER SOURCE 05/04/2024 Primary Insurance:BLUE CARD PPO OOSPolicy Number: [id number] [id number] Date:[id number] Name:Yong ROUSE: [id number] [place], [place] [id number] [place] [address]
[2024-12-21 11:08] LABS: Chlamydia By Nucleic Acid AMP Negative (Negative); Gonococcus By Nucleic Acid AMP Negative (Negative)
== END | disposition home or self-care (01) ==
LOC: LABSPEC 15:42
PROVIDERS: PCP Nurse Practitioner Primary Care; Referring Provider Nurse Practitioner Women's Health; Visit Provider Nurse Practitioner Women's Health
DX: R10.2 Pelvic and perineal pain (principal)
CPT/HCPCS: 87070; 87205; 87491; 87591

== ENCOUNTER → 2025-01-15 | Outpatient (CLI) | payer BC, SELFPAY | END | disposition home or self-care (01) | LOC: LABSPEC 16:09 | PROVIDERS: PCP Nurse Practitioner Primary Care; Visit Provider Nurse Practitioner Women's Health | DX: R30.0 Dysuria (principal) | CPT/HCPCS: 87077; 87086; 87088; 87186 ==